=== PATIENT | male | born 1975 | race Caucasian/White ===

== ENCOUNTER → 2020-04-28 | Emergency (ER) | payer OTHER ==
[~2020-04-28] VITALS: Ht 175.3 cm; Wt 74.4 kg
== END | disposition left against medical advice (07) ==
LOC: ER 15:53
DX: Z53.20 Procedure and treatment not carried out because of patient's decision for unspecified reasons (principal)

== ENCOUNTER 2020-04-29 08:08 | Outpatient (CLI) | payer OTHER | END 2020-04-29 10:44 | disposition home or self-care (01) | LOC: SONOGRAMA 08:08 | PROVIDERS: ATTEND General Practice | DX: R10.84 Generalized abdominal pain (principal) ==